=== PATIENT | male | born 1970 | race Hispanic/Latino ===

== ENCOUNTER → 2023-04-15 | Outpatient (CLI) | payer BC, OTHER ==
[~2023-04-15] MED LIST: GADOTERATE MEGLUMINE 10 MMOL/20 ML VIAL IV ONE
== END | disposition home or self-care (01) ==
LOC: RAH 10:21
PROVIDERS: ATTEND Otolaryngology Plastic Surgery within the Head & Neck
DX: H90.3 Sensorineural hearing loss, bilateral (principal); J33.8 Other polyp of sinus
CPT/HCPCS: 70553; A9575